=== PATIENT | male | born 1975 | race Caucasian/White ===

== ENCOUNTER 2021-09-27 13:11 | Emergency (ER) | payer BC ==
[~2021-09-27] VITALS: Ht 188 cm; Wt 138.3 kg
== END 2021-09-27 15:41 | disposition home or self-care (01) ==
LOC: ER1 13:11
DX: U07.1 COVID-19 (principal); Z23 Encounter for immunization; E66.9 Obesity, unspecified; E11.9 Type 2 diabetes mellitus without complications; I10 Essential (primary) hypertension
CPT/HCPCS: 99282; M0245

== ENCOUNTER → 2022-02-22 | Outpatient (CLI) | payer BC | LOC: KOH-I 08:46 | DX: M19.012 Primary osteoarthritis, left shoulder (principal) | CPT/HCPCS: 73200 ==

== ENCOUNTER → 2022-06-13 | Outpatient (CLI) | payer BC | LOC: KOH-I 09:46 | DX: Z01.818 Encounter for other preprocedural examination (principal); M19.011 Primary osteoarthritis, right shoulder | CPT/HCPCS: 73200 ==